=== PATIENT | female | born 1995 | race Caucasian/White ===

== ENCOUNTER → 2018-06-09 10:01 | Outpatient (CLI) | payer BC, SELFPAY ==
--- NOTE | 2018-06-09 10:05 | US_ITS ---
US transvaginal Ordering Physician: Donna Lal MD Patient Age: 23 years: Female HISTORY: ITS.REASON: T/V US- Amenorrhea2 months LMP 01/29/2018 TECHNIQUE: Transvaginal pelvic ultrasound MW COMPARISON :None FINDINGS : UTERUS: normal size . 6.3 cm length x 2.8 cm AP x 3.9 cm wide . No uterine mass. Homogeneous Endometrial stripe 6.3 mm AP. Moderate thickness . Nabothian cyst 4.5 mm length upper cervical canal Very numerous follicular cyst throughout both ovaries suggesting polycystic ovary changes: . This includes a ' string of lois 'appearance of the margin of both ovaries Right ovary: 3.4 cm x 1.8 cm x 2 cm Left ovary: 4.3 cm x 2 cm x 2.6 cm. . free fluid at cul-de-sac\: Fluid collection measuring up to 4.1 cm transverse x 1.3 cm AP X 3.2cm length IMPRESSION 1. Uterus appears normal in size. 2. Both ovaries with very numerous follicular cysts. Polycystic ovary appearance Left ovary slightly larger, measuring up to 4.3 cm maximally 3. Free fluid in cul-de-sac. IMPRESSION:
[2018-06-09 13:25] LABS: HCG,Quantitative 0 mIU/mL; Thyroid Stimulating Hormone 0.94 uIU/ml (0.358-3.740)
[2018-06-11 01:10] LABS: FSH 6.2 mIU/mL (.); LH 16.8 mIU/mL (.); Progesterone 0.2 ng/mL (.)
== END ==
PROVIDERS: Family Provider Internal Medicine Adolescent Medicine; PCP Internal Medicine Adolescent Medicine; Visit Provider Obstetrics & Gynecology
DX: N91.2 Amenorrhea, unspecified (principal); Z32.00 Encounter for pregnancy test, result unknown
CPT/HCPCS: 36415; 76830; 83001; 83002; 84144; 84443; 84702

== ENCOUNTER → 2021-10-26 17:26 | Outpatient (CLI) | payer BC, SELFPAY ==
--- NOTE | 2021-10-26 17:38 | XR_ITS ---
PROCEDURE INFORMATION: Exam: XR Right Ankle Exam date and time: 10/26/2021 5:38 PM Age: 26 years old Clinical indication: Pain; Ankle; Right; Additional info: Acute right ankle pain TECHNIQUE: Imaging protocol: XR Right ankle. Views: 3 or more views. COMPARISON: CR [id number] 03/14/2017 1:19 PM FINDINGS: Bones/joints: No fracture. No malalignment. Soft tissues: Mild soft tissue swelling about the ankle IMPRESSION: No acute osseous abnormality.
== END ==
PROVIDERS: PCP Nurse Practitioner Family; Visit Provider Nurse Practitioner Family
DX: M25.571 Pain in right ankle and joints of right foot (principal); G89.11 Acute pain due to trauma
CPT/HCPCS: 73610

== ENCOUNTER 2022-03-07 15:53 | Emergency (ER) | payer BC, SELFPAY ==
[2022-03-07 15:54] VITALS: BP 144/95; PULSE 92; RESP 16; TEMP 36.3; O2SAT 99; BMI 35.5
[2022-03-07 15:58] VITALS: BP 125/86; PULSE 82; O2SAT 100
[2022-03-07 16:11] LABS: Microscopic, Urine URINE MICROSCOPIC (MICROSCOPIC)
[2022-03-07 16:16] LABS: Appearance,Urine CLEAR (Clear); Bilirubin,Urine Negative (Negative); Blood, Urine Negative (Negative); Color,Urine YELLOW (Yellow); Glucose,Urine (UA) Negative (Negative); Ketones,Urine Negative (Negative); Leukocyte Esterase,Urine Negative (Negative); Nitrate,Urine Negative (Negative); PH,Urine 6.5 (5.0-8.5); Protein,Urine Negative (Negative); Urobilinogen,Urine 0.2 EU/dl (0.2)
--- NOTE | 2022-03-07 16:22 | HMH.EDGENADL ---
ED Disposition Clinical Impression: Bronchitis Strain of chest wall Qualifiers: Encounter type: initial encounter Qualified Code(s): S29.011A - Strain of muscle and tendon of front wall of thorax, initial encounter Disposition: Home, Self-Care Condition on Discharge: Fair Instructions: DI for Back Strain or Sprain Additional Instructions: Admit the use of your left upper extremity for the next 2 to 3 days. You may take [id number] Tylenol for your pain. Follow-up with your primary care doctor or your straightener hand in the next 3 to 4 days if you do not feel any improvement. Into the emergency department immediately if you feel worse in any way. Referrals: Ashish Schulz MD [Primary Care Provider] - - Critical Care Critical Care Time: No Attestation: On 03/07/22, the high probability of a clinically significant, sudden or life threatening deterioration of the following system(s) required my full and direct attention, intervention and personal management. The time I documented below is in addition to time spent performing reported procedures but includes the following listed in this critical care notation. Medical Decision Making - Medical Records Medical records reviewed: Yes: I reviewed the patient's medical records. - Jeffry Inquiry Pt receiving controlled substance: No Vital Signs: 03/07/22 15:54 Temperature 97.4 F L Temperature Source Oral Pulse Rate [Right Radial] 92 H Respiratory Rate 16 Blood Pressure [Right Arm] 144/95 H Blood Pressure Mean [Right Arm] 111 Blood Pressure Source [Right Arm] Automatic Cuff Blood Pressure Position [Right Arm] Sitting 02 Sat by Pulse Oximetry 99 Oxygen Delivery Method Room Air - Lab Data Lab results reviewed: Yes: I reviewed the patient's lab results. Lab Results 03/07/22 15:57: Urine Color Yellow, Urine Appearance Clear, Urine pH 6.5, Ur Specific [place] 1.020, Urine Protein Negative, Urine Glucose (UA) Negative, Urine Ketones Negative, Urine Blood Negative, Urine Nitrate Negative, Urine Bilirubin Negative, Urine Urobilinogen 0.2, Ur Leukocyte Esterase Negative Orders (Tests/Meds): ORDERS Category Date Time Status UA [Urinalysis and Microscopic] Stat Lab 03/07/22 15:57 Results Medical Decision Narrative: The patient's history and physical exam are consistent with a pulled muscle from coughing. The patient has no evidence of life-threatening or dangerous causes for the patient's pain. There is no urinary tract infection. There is no complication of . The patient can be discharged in stable condition with [id number] Tylenol for her pain. I have written her to limit the use of her left upper extremity since that causes more pain due to the movement. General Adult HPI - General Chief complaint: PAIN Stated complaint: lt side pain, 16 wk Time Seen by Provider: 03/07/22 16:22 Mode of Arrival: Ambulatory Limitations: No Limitations Description of Symptoms (Recalled from ER Triage Doc. by RN): Pt c/o worsening left side pain x1 week. Advises that she is currently 16 weeks - History of Present Illness HPI narrative: The patient presents to the emergency department complaining of left sided trunk pain that is worse with coughing and movement. She states that she has been coughing for the last week or so. She is also 16 months . She denies any vaginal bleeding. Denies any abdominal pain. No diarrhea or vomiting. - Related Data Allergies Allergy/AdvReac Type Severity Reaction Status Date / Time No Known Allergies Allergy Verified 08/07/18 17:58 [facility] History - Hepatitis A Screen Drug use history?: No High risk sexual behaviors?: No History of sexually transmitted infection?: No Currently employed?: No Childcare worker?: No Do you have indoor plumbing?: Yes Do you have electricity?: Yes Attestation statement:: This patient has been screened for Hepatitis A risk factors. Medi
[2022-03-07 16:28] LABS: Bacteria,Urine 1+ /lpf
[2022-03-07 16:30] VITALS: BP 119/71; PULSE 90; O2SAT 99
[2022-03-07 17:00] VITALS: BP 121/77; PULSE 74; O2SAT 100
[2022-03-07 17:23] VITALS: BP 121/77; PULSE 74; RESP 16; TEMP 36.9; O2SAT 98
== END 2022-03-07 17:24 | disposition home or self-care (01) ==
PROVIDERS: Emergency Provider Emergency Medicine; PCP Internal Medicine Adolescent Medicine
DX: O26.899 Other specified pregnancy related conditions, unspecified trimester (principal); S29.011A Strain of muscle and tendon of front wall of thorax, initial encounter; O99.52 Diseases of the respiratory system complicating childbirth; J40 Bronchitis, not specified as acute or chronic; Z3A.16 16 weeks gestation of pregnancy; G43.909 Migraine, unspecified, not intractable, without status migrainosus; O99.340 Other mental disorders complicating pregnancy, unspecified trimester; F32.A Depression, unspecified; F41.9 Anxiety disorder, unspecified; Z83.438 Family history of other disorder of lipoprotein metabolism and other lipidemia; Z80.9 Family history of malignant neoplasm, unspecified
CPT/HCPCS: 81001; 99283

== ENCOUNTER 2025-08-22 14:48 | Emergency (ER) | payer BC, SELFPAY ==
[2025-08-22 15:27] VITALS: BP 140/79; PULSE 106; RESP 16; TEMP 37; O2SAT 100; BMI 39.3
--- NOTE | 2025-08-22 15:28 | HMH.EDGENADL ---
Discharge Plan Disposition Patient Disposition: Home, Self-Care Prescriptions Prescriptions: New cephalexin 250 mg capsule 250 mg PO QID 5 Days Qty: 20 0RF Referrals Follow up/Referrals: Ashish Schulz MD [Primary Care Provider, Internal Medicine] - See instructions Activity Restrictions/Add. Instructions Additional Instructions/Restrictions: Your is approximately 6 weeks along with an appropriate heart rate and is located appropriately within the uterus. There is a small area of bleeding outside the uterus called a subchorionic hemorrhage, which is likely the source of your bleeding today. This does increase your risk of miscarriage but there is no evidence of miscarriage at this time. Continue to rest over the weekend and follow-up with your OB physician early next week as planned. You are also found to have bacteria in your urine and I am prescribing you a course of antibiotics. Take the Keflex 4 times daily for 5 days as prescribed. If you develop any new or worsening symptoms, such as fever, worsening bleeding, or if you become concerned for your health for any reason, return to the emergency department for evaluation. Clinical Impressions Clinical Impression: Subchorionic hemorrhage in first trimester, Confirmed intrauterine on ultrasound, Asymptomatic bacteriuria during Stand Alone Forms Stand Alone Forms: Work/School Release Instructions Patient Instructions: DI for Vaginal Bleeding During , Subchorionic Hemorrhage Print Language Print Language: Vincentian Discharge ED Provider: Nick Rivera Adult HPI General Chief complaint: Vaginal Bleeding Stated complaint: Positive Preg. Test/Bleeding Time Seen by Provider: 08/22/25 15:27 History of Present Illness HPI narrative: Loren Navarro is a 30F with no other significant past medical history who presents to the emergency department for complaints of vaginal bleeding with positive home test. Patient states that she has irregular periods and is not exactly sure how far along she is, however she estimates approximately 5 weeks. She states that she was seen by Dr. Schulz approximately 1 week ago and had blood work with a beta-hCG over 18,000. She states that today, approximately 1 hour ago, she had bloody/brown vaginal discharge when wiping only. She denies any dysuria or hematuria. She states that over the last several weeks she has had some abdominal cramping and nausea but no vomiting and no worsening pain today. She is concerned she might be having another miscarriage. She does state that she has had a miscarriage in the past. She denies any fevers. She reports that she is post have her first appointment with OB on Tuesday of next week. Related Data Previous Rx's ?Medication ?Instructions ?Recorded cephalexin 250 mg capsule 250 mg PO QID 5 days #20 caps 08/22/25 Allergies Allergy/AdvReac Type Severity Reaction Status Date / Time No Known Allergies Allergy Verified 08/22/25 15:33 [facility] Disclaimer: The information contained in this section may have been updated after the patient was seen, as this information can be updated by other users. Social History Smoking Status: Never smoker alcohol intake: never substance use type: denies use current occupational status: employed Travel in the last 8 weeks?: None Other Medical History Have you received the Flu Vaccine for this season: Yes Have you received the Pneumonia Vaccine: No ROS Obtained: Yes Systems reviewed as appropriate & no additional complaints except as documented Physical Exam General General appearance: alert and in no apparent distress Head Head exam: atraumatic Eye Eye exam: Present normal appearance ENT ENT exam: Present normal external ear exam Neck Neck exam: Present full ROM Chest Chest inspection: Present symmetric chest wall rise Respiratory Respiratory exam: Present normal lung sounds bilaterally; Absent respiratory distress Cardiovascular Cardiovascular exam: Present regular rate and normal rhythm Abdominal Exam Abdominal exam: Present soft; Absent tenderness or guarding Extremities Exam Extremities exam: Present normal inspection Back Exam Back exam: Present normal inspection Neurological Exam Neurological exam: Present alert and oriented X3 Psychiatric Psychiatric exam: Present normal affect Skin Skin exam: Present warm and dry Medical Decision Making Medical Records Screening: Per USPSTF and CDC recommendations, given the prevalence of disease in our region, it is our hospital?s policy to screen for HIV and viral Hepatitis for all patients aged 18 and over and those with ongoing risk factors. Jeffry Inquiry Pt receiving controlled substance: No Vital Signs: 08/22/25 15:27 Temperature 98.6 F Temperature Source Oral Pulse Rate [Left Brachial] 106 H Respiratory Rate 16 Blood Pressure [Left Arm] 140/79 Blood Pressure Mean [Left Arm] 99 Blood Pressure Source [Left Arm] Automatic Cuff Blood Pressure Position [Left Arm] Sitting 02 Sat by Pulse Oximetry 100 Oxygen Delivery Method Room Air Lab Data Lab Results 08/22/25 15:25: Urine Color Yellow, Urine Appearance Clear, Urine pH 6.5, Ur Specific [place] 1.010, Urine Protein Negative, Urine Glucose (UA) Negative, Urine Ketones Negative, Urine Blood 1+ A, Urine Nitrate Negative, Urine Bilirubin Negative, Urine Urobilinogen 0.2, Ur Leukocyte Esterase Negative, Urine RBC Occasional, Urine WBC 5-10, Ur Squamous Epith Cells 5-10, Urine Bacteria Trace 08/22/25 15:49: WBC 7.3, RBC 4.52, Hgb 13.2, Hct 39.6, MCV 87.6, MCH 29.2, MCHC 33.3, RDW 12.7, Plt Count 307, MPV 9.6, Neut % (Auto) 67.4, Lymph % (Auto) 24.2, Wirt % (Auto) 6.1, Eos % (Auto) 1.8, Baso % (Auto) 0.4, Neut # (Auto) 4.9, Lymph # (Auto) 1.8, Wirt # (Auto) 0.5, Eos # (Auto) 0.1, Baso # (Auto) 0.0, Sodium 136, Potassium 3.8, Chloride 102, Carbon Dioxide 26, Anion Gap 11.8, BUN 8, Creatinine 0.80, Estimated Creat Clear 163, Estimated GFR 84, Est GFR ( Amer) 102, Glucose 86, Calcium 9.5, Total Bilirubin 0.4, AST 24, ALT 27, Alkaline Phosphatase 80, Total Protein 7.4, Albumin 4.1, Globulin 3.3 H, Albumin/Globulin Ratio 1.2, HCG, Quant 29629 H, Blood Type B Positive 08/22/25 15:49 08/22/25 15:49 Orders (Tests/Meds): ORDERS Category Date Time Status ABO/RH Type Stat BBK 08/22/25 15:49 Completed Beta HCG, Quant [HCG,Quantitative] Stat Lab 08/22/25 15:49 Completed CBC w/Auto Diff [Complete Blood Count Auto Diff] Stat Lab 08/22/25 15:49 Completed CMP [Comprehensive Metabolic Panel] Stat Lab 08/22/25 15:49 Completed UA [Urinalysis and Microscopic] Stat Lab 08/22/25 15:25 Completed US OB transvaginal Stat Ultrasound 08/22/25 15:34 Completed Medical Decision Narrative: Loren Navarro is a 30F with no other significant past medical history who presents to the emergency department for complaints of vaginal bleeding with positive home test. Patient states that she has irregular periods and is not exactly sure how far along she is, however she estimates approximately 5 weeks. She states that she was seen by Dr. Schulz approximately 1 week ago and had blood work with a beta-hCG over 18,000. She states that today, approximately 1 hour ago, she had bloody/brown vaginal discharge when wiping only. She denies any dysuria or hematuria. She states that over the last several weeks she has had some abdominal cramping and nausea but no vomiting and no worsening pain today. She is concerned she might be having another miscarriage. She does state that she has had a miscarriage in the past. She denies any fevers. She reports that she is post have her first appointment with OB on Tuesday of next week. On arrival, patient's blood pressure mildly elevated at 140/79, heart rate mildly elevated at 106, in no respiratory distress breathing 16 times a minute. Afebrile with temperature 98.6 ?F. Oxygen saturation 100% on room air. Physical exam, as stated above, revealed overall well-appearing female in no distress. She has no abdominal tenderness on exam. Cardiopulmonary exam is unremarkable. Differential diagnosis includes, but is not limited to: Threatened miscarriage, ectopic , inevitable miscarriage, subchorionic hemorrhage, asymptomatic bacteriuria in , among others. Low concern for septic miscarriage given patient has not had a fever and is afebrile here. Will obtain hematologic labs, quantitative beta-hCG, urinalysis and transvaginal ultrasound to confirm intrauterine . Patient's workup shows no leukocytosis, no anemia, platelets within normal limits. Electrolytes within normal limits. No GIOVANNI. Liver enzymes within normal limits. Bilirubin normal at 0.4. Patient's urinalysis shows 1+ blood. Negative nitrate. Patient's blood type is B+, thus there is no indication for RhoGAM. Negative leukocyte esterase. Urine microscopy showed 5-10 white blood cells, occasional red blood cells and trace bacteria. This is consistent with asymptomatic bacteriuria of . Will prescribe 5-day course of Keflex. Patient's quantitative beta-hCG is appropriately rising and is over 61,000 today. Transvaginal ultrasound was interpreted by me personally. Live intrauterine approximately 6 weeks 0 days with heart motion of 146 bpm. Per radiology, there is a possible small subchorionic hemorrhage along the lower margin of the gestational sac. No other acute findings. Patient's bleeding today could be secondary to threatened versus subchorionic bleeding. Patient notes that she has follow-up early next week with her OB physician. I discussed the results of her workup today and instructed her to follow-up as scheduled and to continue taking vitamins. I did state that a subchorionic hemorrhage could pose an increased risk to miscarriage in the first trimester. I discussed that we have prescribed her antibiotics for bacteria in her urine. I did give the patient strict return precautions. All questions were answered. She demonstrated understanding and was in agreement this plan. She was then discharged from the emergency department in stable condition. Critical Care Critical Care Time Critical Care Time: No
--- NOTE | 2025-08-22 15:34 | US_ITS ---
PROCEDURE INFORMATION: Exam: US , Transvaginal Exam date and time: 08/22/2025 3:41 PM Age: 30 years old Clinical indication: Lmp or gestational age (in weeks): 6w1d; Other: Bleeding; ; Additional info: Positive preg test, vaginal bleeding TECHNIQUE: Imaging protocol: Real-time transvaginal obstetrical ultrasound of the maternal pelvis with image documentation. Transvaginal imaging was used for better evaluation of the fetus, adnexa, and/or cervix. COMPARISON: No relevant prior studies available. FINDINGS: Gestation: Gestational sac, yolk sac and pole are identified within the endometrial cavity. Yolk sac measures 3.8 mm. [place]-rump length measures up to 3.74 cm (6 weeks 0 days). heart rate: 146 bpm. BIOMETRY: Gestational age (AUA): 6 w 1 d Estimated due date (AUA): 04/16/2026 [place] rump length (CRL): 3.74 mm. EGA (CRL) is 6 w 0 d MATERNAL: Cervix: Cervix appears closed. Right ovary/adnexa: Right ovary measures 2.76 cm x 2.05 cm x 1.67 cm. Right ovarian volume is 4.95 mL. The right ovary appears unremarkable. Numerous small cysts or follicles are present. Vascular flow is documented within the right ovary. Arterial and venous waveforms are within normal limits. Left ovary/adnexa: Left ovary measures 2.73 cm x 1.93 cm x 2.01 cm. Left ovarian volume is 5.55 mL. Left ovary appears unremarkable. Faint vascular flow is documented within the left ovary. Intraperitoneal space: No free fluid. Other findings: Subtle heterogeneous and curvilinear area of decreased echogenicity is present along the inferior margin of the gestational sac which could potentially correspond to a very small subchorionic hemorrhage. IMPRESSION: 1. Live intrauterine approximately 6 weeks 0 days gestational age based on measurement. heart motion detected at up to 146 bpm. 2. Subtle curvilinear area of decreased echogenicity along the lower margin of the gestational sac could correspond to a very small subchorionic hemorrhage. Clinical follow-up is recommended. 3. Ovaries appear unremarkable.
--- OUTSIDE RECORDS SUMMARY | 2025-08-22 15:42 | XMS_ITS | Encounter Summary ---
Author Organization [employer] ([place], [place], [place], [place]) Address [address] [place] [address] Care Team Providers Care Gauge Checker Name Role Phone Unavailable Primary Care Provider Unavailabl e Encounter Details Date Type Department Care Team (Late st Contact Info) Description 10/15/2019 Transcribed Document [facility] [place] Family Medicine [address] [place] [address] ProviderFlavia MD [address] [place] [address] Social History Tobacco Use Types Packs/Day Years Used Date Smoking Tobacco: Never Assessed Comments Unknown Sex and Gender Information Value Date Recorded Sex Assigned at Female 05/25/2022 8:35 PM CDT Legal Sex Female 8:35 PM CDT Gender Identity Female 05/25/2022 8:35 PM CDT Sexual Orientation Not on file documented as of this encounter Miscellaneous Notes * Cerner Conversion Note - Flavia ProviderMD - 10/15/2019 3:01 PM HOME PERFORMANCE LABORER [address] [address] LOREN NAVARRO :1995 Visit Time:10/15/2019 What to do next Your Diagnosis Other ovarian cyst, right side, Other ovarian cyst, right side Ovarian cyst, right Instructions From Your Care Team Diet after Discharge: Resume usual diet as tolerated Activity after Discharge: As tolerated, Rest and relax today, No strenuous activity Driving after Discharge: Do not drive until 24 hours after no longer taking pain medications Showering/Bathing: May shower in 48 hours, No tub bathing, soaking or swimming Notify Provider of: fever 101 or higher or chills; uncontrollable nausea and vomiting or uncontrollable pain, increased redness, drainage, or swelling at incision sites, bleeding heavier than a menstrual period, or any symptom that concerns you Wound/Incision Care after Discharge: Keep operative site/wound site clean and dry, Remove outer dressings in 48 hours and shower, leave steri strips in place and blot dry Prescription given for Percocet 5/325mg take one tablet by mouth three times a day as needed for pain (you had Percocet 5/325mg at 2:19pm). Do not take Ibuprofen or Ibuprofen containing medications before 10:24pm. Follow-Up Appointments Follow Up with BRITTON TAYLOR When 11/06/2019 02:00 PM EST Comments Appointment has been made Where: [address] [place] [address] [id number] Medications What How Much When Instructions Next Dose acetaminophen-oxyCODONE (Percocet 5/ 325 oral tablet) 1 Tablet(s) Oral Three Times A Day as needed for Pain (Moderate 4-6) Printed Prescription drospirenone-ethinyl estradiol (Tiffanie 3 mg-0.02 mg oral tablet) 1 Tablet(s) Oral Every Day Take your medications faithfully. Do NOT skip medication. Do NOT stop taking medications without the direction of a physician. Carry a list of your medications with you at all times, and take this medication list with you to your first follow up visit. Report any side effects. Avoid herbal remedies unless discussed with your physician. As part of your treatment plan, your physician may have prescribed a limited course of a controlled substance. This medication may be given to help people with moderate or severe pain or for other medical conditions, but there are risks involved with treatment. Common side effects may include nausea, constipation, drowsiness, sweating, itching, dry mouth, and rash. More serious side effects may include cognitive and motor impairment, like problems with thinking, concentrating, alertness, and movement (e.g. slowed reflexes), and driving and operating heavy machinery can be dangerous. It is important for you to talk to your physician if you have these side effects or questions. These controlled substances can produce physical dependence and be habit-forming if taken for an extended period of time, which means that the body has gotten used to them and may experience withdrawal symptoms if they are abruptly stopped. Withdrawal symptoms can include runny nose, sweating, goose bumps, diarrhea, abdominal cramping, rapid heartbeat, difficulty sleeping, and nervousness. Please dispose of unused and medications per pharmacy guidance. Education Materials General Anesthesia, Adult, Care After This sheet gives you information about how to care for yourself after your procedure. Your health care provider may also give you more specific instructions. If you have problems or questions, contact your health care provider. What can I expect after the procedure? After the procedure, the following side effects are common: ??? Pain or discomfort at the IV site. ??? Nausea. ??? Vomiting. ??? Sore throat. ??? Trouble concentrating. ??? Feeling cold or chills. ??? Weak or tired. ??? Sleepiness and fatigue. ??? Soreness and body aches. These side effects can affect parts of the body that were not involved in surgery. Follow these instructions at home: For at least 24 hours after the procedure: ??? Have a responsible adult stay with you. It is important to have someone help care for you until you are awake and alert. ??? Rest as needed. ??? Do not: ? Participate in activities in which you could fall or become injured. ? Drive. ? Use heavy machinery. ? Drink alcohol. ? Take sleeping pills or medicines that cause drowsiness. ? Make important decisions or sign legal documents. ? Take care of children on your own. Eating and drinking ??? Follow any instructions from your health care provider about eating or drinking restrictions. ??? When you feel hungry, start by eating small amounts of foods that are soft and easy to digest (bland), such as toast. Gradually return to your regular diet. ??? Drink enough fluid to keep your urine pale yellow. ??? If you vomit, rehydrate by drinking water, juice, or clear broth. General instructions ??? If you have sleep apnea, surgery and certain medicines can increase your risk for breathing problems. Follow instructions from your health care provider about wearing your sleep device: ? Anytime you are sleeping, including during daytime naps. ? While taking prescription pain medicines, sleeping medicines, or medicines that make you drowsy. ??? Return to your normal activities as told by your health care provider. Ask your health care provider what activities are safe for you. ??? Take jgpx-ndh-gtzhdzj and prescription medicines only as told by your health care provider. ??? If you smoke, do not smoke without supervision. ??? Keep all follow-up visits as told by your health care provider. This is important. Contact a health care provider if: ??? You have nausea or vomiting that does not get better with medicine. ??? You cannot eat or drink without vomiting. ??? You have pain that does not get better with medicine. ??? You are unable to pass urine. ??? You develop a skin rash. ??? You have a fever. ??? You have redness around your IV site that gets worse. Get help right away if: ??? You have difficulty breathing. ??? You have chest pain. ??? You have blood in your urine or stool, or you vomit blood. Summary ??? After the procedure, it is common to have a sore throat or nausea. It is also common to feel tired. ??? Have a responsible adult stay with you for the first 24 hours after general anesthesia. It is important to have someone help care for you until you are awake and alert. ??? When you feel hungry, start by eating small amounts of foods that are soft and easy to digest (bland), such as toast. Gradually return to your regular diet. ??? Drink enough fluid to keep your urine pale yellow. ??? Return to your normal activities as told by your health care provider. Ask your health care provider what activities are safe for you. This information is not intended to replace advice given to you by your health care provider. Make sure you discuss any questions you have with your health care provider. Document Released: 02/20/2002 Document Revised: 06/30/2018 Document Reviewed: 06/30/2018 [employer] Interactive Patient Education ?? 2019 [employer] Ovarian Cystectomy, Care After This sheet gives you information about how to care for yourself after your procedure. Your health care provider may also give you more specific instructions. If you have problems or questions, contact your health care provider. What can I expect after the procedure? After the procedure, it is common to have: ??? Pain in your abdomen, especially at the incision areas. You will be given pain medicines to control the pain. ??? Tiredness. This is a normal part of the recovery process. Your energy level will return to normal over the next several weeks. ??? Problems passing stool (constipation). Follow these instructions at home: Medicines ??? Take drbg-lkb-wzwlotc and prescription medicines only as told by your health care provider. ??? If you were prescribed an antibiotic medicine, use it as told by your health care provider. Do not stop using the antibiotic even if you start to feel better. ??? Do not take aspirin because it can cause bleeding. ??? Do not drink alcohol while taking prescription pain medicine. ??? Do not drive or use heavy machinery while taking prescription pain medicine. Incision care ??? Follow instructions from your health care provider about how to take care of your incisions. Make sure you: ? Wash your hands with soap and water before you change your bandage (dressing). If soap and water are not available, use hand diesel electrician. ? Change your dressing as told by your health care provider. ? Leave stitches (sutures), skin glue, or adhesive strips in place. These skin closures may need to stay in place for 2 weeks or longer. If adhesive strip edges start to loosen and curl up, you may trim the loose edges. Do not remove adhesive strips completely unless your health care provider tells you to do that. ??? Check your incision areas every day for signs of infection. Check for: ? Redness, swelling, or pain. ? Fluid or blood. ? Warmth. ? Pus or a bad smell. ??? Do not take baths, swim, or use a hot tub until your health care provider approves. Take showers instead of baths. Activity ??? Return to your normal activities and diet as told by your health care provider. Ask your health care provider what activities are safe for you. ??? Take rest breaks during the day as needed. ??? Do not drive until your health care provider approves. General instructions ??? Do not douche, use tampons, or have sexual intercourse until your health care provider says it is okay to do so. ??? To prevent or treat constipation while you are taking prescription pain medicine, your health care provider may recommend that you: ? Take fxtw-wmh-rlxfnki or prescription medicines. ? Eat foods that are high in fiber, such as fresh fruits and vegetables, whole grains, and beans. ? Drink enough fluid to keep your urine clear or pale yellow. ? Limit foods that are high in fat and processed sugars, such as fried and sweet foods. ??? Keep all follow-up visits as told by your health care provider. This is important. Contact a health care provider if: ??? You have a fever. ??? You feel nauseous or you vomit. ??? You have pain when you urinate or have blood in your urine. ??? You have a rash on your body. ??? You have pain or redness where the IV was inserted. ??? You have pain that is not relieved with medicine. ??? You have signs of infection, such as: ? Redness, swelling, or pain around your incisions. ? Fluid or blood coming from your incisions. ? An incision that feels warm to the touch. ? Pus or a bad smell coming from your incisions. Get help right away if: ??? You have chest pain or shortness of breath. ??? You feel dizzy or light-headed. ??? You have increasing abdominal pain that is not relieved with medicines. ??? You have pain, swelling, or redness in your leg. ??? Your incision is opening (the edges are not staying together). Summary ??? After the procedure, it is common to have some pain in your abdomen. You will be given pain medicines to control the pain. ??? Follow instructions from your health care provider about how to take care of your incisions. ??? Do not douche, use tampons, or have sexual intercourse until your health care provider says it is okay to do so. ??? Keep all follow-up visits as told by your health care provider. This is important. This information is not intended to replace advice given to you by your health care provider. Make sure you discuss any questions you have with your health care provider. Document Released: 09/04/2014 Document Revised: 01/03/2018 Document Reviewed: 01/03/2018 [employer] Interactive Patient Education ?? 2019 [employer] Emergency Awareness and Preventative Care STROKE is an EMERGENCY Every Minute Counts Act FAST and Check for these signs: FACE Does the face look uneven? ARM Does one arm drift down? SPEECH Does their speech sound strange? TIME Call 9-1-1 at any sign of stroke Stroke Risk Factors Atrial Fibrillation (irregular heartbeat) Diabetes Family history of stroke Heart Disease Heavy alcohol use High Blood Pressure High Cholesterol Physical inactivity and obesity Smoking Cigarette Smoking The facts are clear, cigarette smoking will shorten your life. Smoking can cause many illnesses along the way. As a healthcare provider, we recommend that you stop smoking. Assistance with quitting is available by contacting 7-601-FPKWNOW. This is a free resource providing counseling, support, and referral. Or you may contact your personal physician. [place] Suicide Prevention Lifeline: The National Suicide Prevention Lifeline is a national network of local crisis centers that provides free and confidential emotional support to people in suicidal crisis or emotional distress 24 hours a day, 7 days a week. Don't Wait! Stop a Heart Attack Before it Starts What is a heart attack? A heart attack is damage or to a part of the heart from severely decreased or lack of blood flow to the heart. Over time, arteries can become narrow from the buildup of fat and cholesterol, which is called plaque. The plaque can rupture causing a blood clot to form. When the blood clot forms, the artery can become severely narrowed or completely blocked, causing a heart attack. Heart attack is the leading cause of in the [place]. 85% of muscle damage occurs within the first 2 hours. Delay in the recognition of heart attack symptoms increases the chances of . Know the early symptoms of a heart attack: Nausea Feeling of fullness in chest Jaw Pain Pain that travels down one or both arms Fatigue/being tired Anxiety Back Pain Chest pressure, squeezing, or discomfort Shortness of breath Sweating, or a cold sweat Feeling of impending doom There are unusual signs of a heart attack, too! Women, the elderly, and diabetics may present with atypical symptoms: Fainting/dizziness Weakness Confusion Risk Factors for a Heart Attack Some heart disease risk factors, such as age and family history, cannot be changed. Others, like smoking and lack of exercise, can be changed. Smoking High Cholesterol High Blood Pressure Family History Obesity Age Gender (Males are at higher risk) Lack of Exercise Diabetes Diet Stress Excessive Alcohol Intake If you or someone you know is experiencing the signs and symptoms of a heart attack, DON???T DELAY. Call immediately and seek help. If someone collapses, perform CPR! Do not attempt to drive if you are having symptoms of heart attack. Hands-Only CPR Why Hands-Only CPR? Hands-Only CPR has been shown to be as effective as conventional CPR for cardiac arrests that occur outside of a hospital. Survival depends on immediately receiving CPR from someone nearby. How do you perform Hands-Only CPR? There are two easy steps: Call 9--1 if you see a teen or adult collapse Push hard and fast in the center of the chest at a beat of 100 beats per minute. Save a life! 4 WAYS TO GET AHEAD OF SEPSIS SEPSIS is a MEDICAL EMERGENCY. Time matters! Infections put you and your family at risk for a life-threatening condition called sepsis. Sepsis is the body's extreme response to an infection. It is life-threatening, and without timely treatment, sepsis can rapidly lead to tissue damage, organ failure, and . Sepsis happens when an infection you already have-in your skin, lungs, urinary tract or somewhere else-triggers a chain reaction throughout your body. 1 PREVENT INFECTIONS Take good care of chronic conditions. Talk to your doctor about getting the recommended vaccines. 2 PRACTICE GOOD HYGIENE Wash your hands frequently. Keep cuts or open sores clean and covered until they are healed. 3 KNOW THE SYMPTOMS Confusion or disorientation Shortness of breath High heart rate Fever, shivering, or feeling very cold Extreme pain or discomfort Clammy or sweaty skin 4 ACT FAST Get medical care IMMEDIATELY if you suspect sepsis or if you have an infection that is not getting better or is getting worse. To learn more about sepsis and how to prevent infections, visit www.cdc.gov/sepsis. Test Results Laboratory or Other Results This Visit (last charted value for your 10/15/2019 visit) Endocrinology 10/15/2019 11:29 AM HCG Urine Qualitative: Negative Patient Name:LOREN NAVARRO I have received this information and was given the opportunity to ask questions. Patient/African History Professor Name: Patient/African History Professor Signature: Relationship to Patient: Clinician/Hospital African History Professor Signature: Date: documented in this encounter Plan of Treatment Not on file documented as of this encounter Visit Diagnoses Not on filedocumented in this encounter
--- OUTSIDE RECORDS SUMMARY | 2025-08-22 15:42 | XMS_ITS | Encounter Summary ---
Author Organization [employer] ([place], [place], [place], [place]) Address [address] [place] [address] Care Team Providers Care Baby Formula Worker Name Role Phone Unavailable Primary Care Provider Unavailabl e Encounter Details Date Type Department Care Team (Late st Contact Info) Description 10/15/2019 Transcribed Document [facility] [place] [address] [place] [address] ProviderFlavia MD [address] [place] [address] Social History Tobacco Use Types Packs/Day Years Used Date Smoking Tobacco: Never Assessed Comments Unknown Sex and Gender Information Value Date Recorded Sex Assigned at Female 05/25/2022 8:35 PM CDT Legal Sex Female 8:35 PM CDT Gender Identity Female 05/25/2022 8:35 PM CDT Sexual Orientation Not on file documented as of this encounter Miscellaneous Notes * Cerner Conversion Note - Flavia Romo MD - 10/15/2019 2:31 PM ROLLER SKATER Patient Education Materials Follows: General Anesthesia, Adult, Care After This sheet [...] activities are safe for you. ??? Take qryo-jlo-eqiyhfz and prescription medicines only as told by [...] 02/20/2002 Document Revised: 06/30/2018 Document Reviewed: 06/30/2018 [employer] Interactive Patient Education ? 2019 [employer] Ovarian Cystectomy, Care After This sheet [...] these instructions at home: Medicines ??? Take onty-pat-eailflh and prescription medicines only as told by [...] and water are not available, use hand spiral tube winder. ? Change your dressing as told by [...] provider may recommend that you: ? Take wpby-sss-rlzjkfb or prescription medicines. ? Eat foods that [...] 09/04/2014 Document Revised: 01/03/2018 Document Reviewed: 01/03/2018 [employer] Interactive Patient Education ? 2019 [employer] documented in this encounter Plan of Treatment Not on file documented as of this encounter Visit Diagnoses Not on filedocumented in this encounter
--- OUTSIDE RECORDS SUMMARY | 2025-08-22 15:42 | XMS_ITS | Encounter Summary ---
Author Organization [employer] ([place], [place], [place], [place]) Address [address] [place] [address] Care Team Providers Care Senior Major Gifts Officer Name Role Phone Unavailable Primary Care Provider Unavailabl e Encounter Details Date Type Department Care Team (Late st Contact Info) Description 10/15/2019 Transcribed Document [facility] [place] Family Medicine [address] [place] [address] ProviderFlavia MD [address] [place] [address] Social History Tobacco Use Types [...] Conversion Note - Flavia ProviderMD - 10/15/2019 1:09 PM REED REPAIRER [facility] Main OR PreOp Summary Primary Physician: BRITTON TAYLOR MD-OBG Finalized Date/Time: 10/16/19 08:53:33 Pt. Name: LOREN LUIS/Sex: 1995 Female Med Rec #: [id number] Physician: BRITTON TAYLOR MD-OBG Financial #: [id number] Pt. Type: O Room/Bed: Admit/Disch: 10/15/19 10:40:00 - 10/15/19 15:25:00 [place] [facility] [place] Case Times Entry 1 In Preop 10/15/19 10:45:00 Ready for Holding n/a Room Patient Ready for 10/15/19 12:05:00 Surgery Patient Out of Preop 10/15/19 12:40:00 Patient Out of n/a Holding Room Last Modified By: WILLIAM BALDWIN 10/16/19 08:53:31 SJYonis PreOp Case Times Audit 10/16/19 08:53:31 Trucker Hand: DONNIE Modifier: [email or web address] <+> 1 Patient Out of Preop Finalized By: WILLIAM BALDWIN Document Signatures Signed By: WILLIAM BALDWIN 10/16/19 08:53 documented in this encounter Plan of Treatment Not on file documented as of this encounter Visit Diagnoses Not on filedocumented in this encounter
--- OUTSIDE RECORDS SUMMARY | 2025-08-22 15:42 | XMS_ITS | Encounter Summary ---
Author Organization [employer] ([place], [place], [place], [place]) Address [address] [place] [address] Care Team Providers Care Raymond Mill Operator Name Role Phone Unavailable Primary Care Provider Unavailabl e Encounter Details Date Type Department Care Team (Late st Contact Info) Description 10/15/2019 Transcribed Document [facility] [place] [facility] [place] [address] ProviderFlavia MD [address] [place] [address] Social History Tobacco Use Types Packs/Day Years Used Date Smoking Tobacco: Never Assessed Comments Unknown Sex and Gender Information Value Date Recorded Sex Assigned at Female 05/25/2022 8:35 PM CDT Legal Sex Female 8:35 PM CDT Gender Identity Female 05/25/2022 8:35 PM CDT Sexual Orientation Not on file documented as of this encounter Miscellaneous Notes * Cerner Conversion Note - Historical ProviderMD - 10/15/2019 11:48 AM PACKING LINE OPERATOR Pre Procedure Adult Entered On: 10/15/2019 11:54 EST Performed On: 10/15/2019 11:48 EST by QUINTIN GALINDO RN Height and Weight, Clinical Dosing Height Source : Stated Height Entry Format : [place] Height, Feet : 5 ft(Converted to: 152 cm, 60 Inch) Height, Inches : 4 Inch(Converted to: 0 ft 4 Inch, 10.16 cm) Clinical Height : 162.56 cm Weight Source : Standing scale Weight Entry Format : [place] Clinical Dosing Weight : 89.55 kg Weight, Pounds : 197 lb Body Surface Area (BSA) : 1.95 m2 Body Mass Index : 33.9 kg/m2 (HI) [place] Body Weight : 54 kg QUINTIN GALINDO RN - 10/15/2019 11:48 EST Health Histories Smoking Status : Never (less than 100 in lifetime; none in last 30 days) Smokeless Tobacco Status : Never QUINTIN GALINDO RN - 10/15/2019 11:48 EST Social History (As Of: 10/15/2019 11:54:38 EST) Tobacco: Never (less than 100 in lifetime) Smoking Status. Never Smokeless Tobacco Status. (Last Updated: 10/15/2019 11:47:11 EST by QUINTIN GALINDO RN) Alcohol: Alcohol Use History No. Alcohol Use Frequency Rarely. (Last Updated: 10/15/2019 11:47:26 EST by QUINTIN GALINDO RN) Substance Abuse: Drug Use Hx: No. Use in Last 12 Months: No. (Last Updated: 10/15/2019 11:47:34 EST by QUINTIN GALINDO RN) Infectious Disease History Infectious Disease History : Chicken pox/Shingles Active Surveillance Screen Assessment : Patient does not meet any of above criteria Active Surveillance Screen Negative : Yes Isolation Needed : Standard Fever/Chills Last 48 Hours : No Travel To Regions with Travel Advisories : No Travel Outside [place] Within Last 30 Days : No Contact With Traveler to Advisory Region : No Tuberculosis Symptoms : None QUINTIN GALINDO RN - 10/15/2019 11:48 EST Anesthesia/Transfusion History Family History of Anesthesia Reaction : No prior transfusion(s) Transfusion History : Prior anesthesia without reaction Family History of Anesthesia Reaction : None QUINTIN GALINDO RN - 10/15/2019 11:48 EST Functional Assessment Living Situation : Home Patient Lives With : Alone Persons Assisting Patient at Home : Friend(s), Parent(s) Current Daily Living Assistance : None Sensory Deficits : None Mobility Assistance Prior to Admission : Independent BU[place] Hx Falls Immediate/Within 3 Months : No Current Home Treatments : None QUINTIN GALINDO RN - 10/15/2019 11:48 EST [place] Suicide Severity Rating Scale (C-SSRS) CSSRS Past Month Wish to be : No CSSRS Past Month Suicidal Thoughts : No CSSRS Lifetime Suicide Behavior : No Suicide Severity Rating Score : 0 Suicide Severity Rating : No Additional Care Required at this time QUINTIN GALINDO RN - 10/15/2019 11:48 EST Psychosocial History Do You Have a History of the Following? : Depression Currently in Unsafe Situation : No QUINTIN GALINDO RN - 10/15/2019 11:48 EST Advance Directive Patient has Advance Directive *Q : No, patient refuses Advance Directive information QUINTIN GALINDO RN - 10/15/2019 11:48 EST General Info Legal Guardian : Friend, Mother Want Family/Rep/Phys Notified of Admit : No Emergency Contact #1 : Chantel Chirinos Emergency Contact #1 Emergency Contact #1 Relationship : mother Emergency Contact #2 : . Emergency Contact #2 Phone Number : . Emergency Contact #2 Relationship : . Information Obtained From : Patient Primary Language : Kyrgyz Preferred Communication Mode : Verbal Communication Barrier : None QUINTIN GALINDO RN - 10/15/2019 11:48 EST Vital Measurements Temperature Source : Oral Temperature, Fahrenheit : 98.3 Deg F Clinical Temperature, C : 36.8 Deg C Pulse Method : Pulse Oximetry Peripheral Pulse Rate : 89 bpm Pulse Rhythm : Regular Respiratory Rate : 16 Breaths/Min Blood Pressure Source : Non-Invasive BP Device Blood Pressure Position : Sitting Systolic Blood Pressure : 144 mmHg (HI) Diastolic Blood Pressure : 85 mmHg Oxygen Saturation : 100 % Oxygen Therapy Mode : Room air QUINTIN GALINDO RN - 10/15/2019 11:48 EST Sleep Apnea Risk Assmt Hx of Obstructive Sleep Apnea Diagnosis : No Snore Loudly : No Tired, Fatigued, or Sleepy During Day : No Observed Stopping Breathing During Sleep : No Have/Are Being Treated for Hypertension : No BMI Greater Than 35 kg/m2 : Yes Age over 50 Years Old : No Neck Circumference Greater Than 40 cm : No Gender Male : No STOP-BANG Sleep Apnea Risk Level Score : 1 QUINTIN GALINDO RN - 10/15/2019 11:48 EST Melvin Scale Melvin Sensory Perception : No impairment Melvin Moisture : Rarely moist Melvin Activity : Walks frequently Melvin Mobility : No limitation Melvin Nutrition : Adequate Melvin Friction and Shear : No apparent problem Melvin Score : 22 QUINTIN GALINDO RN - 10/15/2019 11:48 EST Fall Risk Scales ABCs Fall Injury Risk Identification : None BUENO Hx Falls Immediate/Within 3 Months : No [place] Secondary Diagnosis : No BUENO Use of Ambulatory Aid : None BUENO IV Therapy or IV Access : Yes [place] Gait/Transferring : Normal, bedrest, immobile Bueno Mental Status : Oriented to own ability [place] Fall Risk Score : 20 [place] Fall Scale Risk Level : 0-24 Low Risk [place] Fall Interventions : Adequate lighting, Bed in low position, Call device within reach, Non-slip footwear, Personal items within reach, Reinforced to call for assistance before getting out of bed, Room free of clutter/spills, Upper side-rails up, Wheels locked, Wires/Cords secured QUINTIN GALINDO RN - 10/15/2019 11:48 EST Education Topics, Day of Surgery DayofSurgery Education Grid Anesthesia/Sedation : Verbalizes understanding Fall Risks : Verbalizes understanding Family Instructions : Verbalizes understanding IV's : Verbalizes understanding Medication Instructions : Verbalizes understanding Pain Management : Verbalizes understanding Plan of Care : Verbalizes understanding Responsible Adult : Verbalizes understanding QUINTIN GALINDO RN - 10/15/2019 11:48 EST Valuables and Belongings Valuables and Belongings : Clothing, Personal devices, Personal items Clothing : Common streetwear Clothing Disposition : With family Personal Device Disposition : With family Personal Devices : Glasses Personal Items : Cell phone Personal Items Disposition : With family QUINTIN GALINDO RN - 10/15/2019 11:48 EST documented in this encounter Plan of Treatment Not on file documented as of this encounter Visit Diagnoses Not on filedocumented in this encounter
--- OUTSIDE RECORDS SUMMARY | 2025-08-22 15:42 | XMS_ITS | Patient Health Record ---
Author Organization [facility] Address [address] [facility] [address] [place] [address] Care Team Providers Care Corporate Communications Manager Name Role Phone Janell Turcios Unavailable [phone] Reason For Referral No Information Problems Problem Type SNOMED Code ICD Code Onset Dates Problem Status W/U Status Risk Notes Problem Gynecological examination normal (84930177074220 4) Cervical smear, as part of routine gynecological examination (Z01.419) 016 Active confirmed Annual without abnormal findings Problem Contraception care education (209340597) Advised about oral contraception (Z30.09) 015 Active confirmed Contraceptive management Plan Of Treatment No Information Medical (General) History Medical History History ICD Code A Routine MINASTRIN 24 FE 1-20 MG-MCG(24) ORAL TAB LET CHEWABLE, ORAL
--- OUTSIDE RECORDS SUMMARY | 2025-08-22 15:42 | XMS_ITS | Referral Summary ---
Author Organization [employer] ([place], [place], [place], [place]) Address [address] [place] [address] Care Team Providers Care Library Director Name Role Phone Unavailable Primary Care Provider Unavailabl e Social History Tobacco Use Types Packs/Day Years Used Date Smoking Tobacco: Never Assessed Comments Unknown Sex and Gender Information Value Date Recorded Sex Assigned at Female 05/25/2022 8:35 PM CDT Legal Sex Female 8:35 PM CDT Gender Identity Female 05/25/2022 8:35 PM CDT Sexual Orientation Not on file Plan of Treatment Not on file
--- OUTSIDE RECORDS SUMMARY | 2025-08-22 15:42 | XMS_ITS | Encounter Summary ---
Author Organization [employer] ([place], [place], [place], [place]) Address [address] [place] [address] Care Team Providers Care Detective Narcotics And Vice Name Role Phone Unavailable Primary Care Provider Unavailabl e Encounter Details Date Type Department Care Team (Late st Contact Info) Description 10/15/2019 Transcribed Document [facility] [place] [facility] [place] [address] ProviderFlavia MD [address] [place] [address] Social History Tobacco Use Types [...] Conversion Note - Flavia ProviderMD - 10/15/2019 1:51 PM TONGUE TRIMMER Patient: LOREN NAVARRO Age: 24 Years Sex: Female : 1995 *Operation Ovarian Cystectomy Laparoscopic, Right Indication for Surgery 3cm right dermoid cyst, pelvic pain *Preoperative Diagnosis ovarian cysts PELVIC PAIN HISTORY OF UMBILICAL HERNIA REPAIR *Postoperative Diagnosis refer to MD notes same *Surgeon(s) Primary Surgeon BRITTON TAYLOR MD-OBG (Surgeon/Proceduralist, First) [id number] bhat [id number] *Procedure Narrative PROCEDURE IN DETAIL: The patient was taken to the operating room, where the general anesthesia was obtained without difficulty. She was prepared and draped in a normal sterile fashion in a dorsal lithotomy position. A heavy weighted speculum was placed in the vagina and the uterine manipulator was placed without difficulty. A Leon catheter was also placed at this time. Attention was then turned to the patient's abdomen where a 5 mm skin incision was placed at the left of umbilicus and the Veress needle was introduced where the opening pressure of CO2 was less than 5 mmHg. The water-filled syringe was then used to confirm the intra-abdominal placement of the Veress needle. The abdomen was then infiltrated with approximately 2 L of CO2 to create a pneumoperitoneum. A 5 mm laparoscope and Optiview were then placed with intra-abdominal placement, was then confirmed via the laparoscope. The patient's abdomen revealed the findings as noted above. Three accessory 5 mm skin incisions were placed and the trocars were inserted under direct visualization via the laparoscope. The laparoscopic scissors were used sharply disect the ovarian cyst along w blunt dissection wth the graspers. Just prior to removing the cyst from the ovary it ruptured and slight amount of yellow sebaceous material leaked from cyst. The abdomen was copiously irrigated w 1.5liters and the pedicle sites were noted to be hemostatic. The laparoscope was then used to survey the patient's abdomen, it revealed totally hemostatic pedicles. The instruments were then removed from the patient's abdomen. The skin incisions was closed with 4-0 Monocryl in a subcuticular fashion. The patient tolerated the procedure well, all counts were correct and she was taken to recovery room in stable condition and she was given antibiotic prophylaxis per hospital protocol. Drains/Packs Used none Anesthesia GET *Estimated Blood Loss MINIMAL Urine Output CLEAR AT END OF PROCEDURE *Findings RIGHT DERMOID NORMAL LEFT OVARY AND UTERUS *Specimen(s) RIGHT CYST WALL Complications none Date of Service Date/Time of Service SN - Proc - Start Time: 10/15/19 13:09:00 (10/15/19 13:16:46) documented in this encounter Plan of Treatment Not on file documented as of this encounter Visit Diagnoses Not on filedocumented in this encounter
--- OUTSIDE RECORDS SUMMARY | 2025-08-22 15:42 | XMS_ITS | Clinical Summary ---
Author Organization [employer] ([place], [place], [place], [place]) Address [address] [place] [address] Care Team Providers Care Transit Survey Worker Name Role Phone Unavailable Primary Care [...]
--- OUTSIDE RECORDS SUMMARY | 2025-08-22 15:43 | XMS_ITS | Encounter Summary ---
Author Organization [employer] ([place], [place], [place], [place]) Address [address] [place] [address] Care Team Providers Care Seed Cleaning Manager Name Role Phone Unavailable Primary Care Provider Unavailabl e Encounter Details Date Type Department Care Team (Late st Contact Info) Description 10/15/2019 Transcribed Document [facility] [place] [address] [place] [address] ProviderFlavia MD [address] [place] [address] Social History Tobacco Use Types [...] - Flavia ProviderMD - 10/15/2019 1:09 PM GAME AUTHOR E Main OR PACU Summary Primary Physician: BRITTNO TAYLOR MD-OBG Finalized Date/Time: 10/15/19 14:37:42 Pt. Name: LOREN LUIS/Sex: 1995 Female Med Rec #: [id number] Physician: BRITTON TAYLOR MD-OBG Financial #: [id number] Pt. Type: O Room/Bed: Admit/Disch: 10/15/19 10:40:00 - Institution: [facility] [place] Main OR PACU Case Times Entry 1 In PACU I 10/15/19 13:43:00 Ready for PACU 10/15/19 14:37:00 Discharge Discharge from PACU 10/15/19 14:37:00 I Last Modified By: Kathia Gee Rn Patient Care Bedside 10/15/19 14:37:31 [facility] Main OR PACU Case Times Audit 10/15/19 14:37:31 Appliance Service Supervisor: RICARDO Modifier: RICARDO <+> 1 Ready for PACU Discharge <+> 1 Discharge from PACU I Finalized By: Kathia Gee Rn Patient Care Bedside Document Signatures Signed By: Kathia Gee Rn Patient Care Bedside 10/15/19 14:37 Electronically signed by Izabela [facility] Conversion Adjunct Trainer Cerner at 03/16/2023 8:44 PM CDT documented in this encounter Plan of Treatment Not on file documented as of this encounter Visit Diagnoses Not on filedocumented in this encounter
--- OUTSIDE RECORDS SUMMARY | 2025-08-22 15:43 | XMS_ITS | Encounter Summary ---
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 Name: BRENDENIRA AQUILESKYM WoodO.B./Sex: 1995 Female Med Rec #: [id number] Physician: BRITTON TAYLOR MD-OBG Financial #: [id number] Pt. Type: O Room/Bed: Admit/Disch: 10/15/19 10:40:00 - Institution: [facility] [place] IntraOp Case Attendance Entry 1 Entry 2 Entry 3 Case Attendee BRITTON TAYLOR MD-OBG Janeth Shelton Holliday, Stewart R, shaping machine operatorDobby Loom Fixer Role Performed Surgeon/Proceduralist, Scrub, First Manager Entry, First First Time In 10/15/19 12:47:00 10/15/19 12:47:00 10/15/19 12:47:00 Time Out 10/15/19 13:42:00 10/15/19 13:42:00 10/15/19 13:42:00 Procedure Ovarian Cystectomy Ovarian Cystectomy Ovarian Cystectomy Laparoscopic(Right) Laparoscopic(Right) Laparoscopic(Right) Other Attendee Superficial Wound Closed By: Last Modified By: Nestor Segovia, Nestor Lara, RN Nestor Segovia, RN 10/15/19 13:44:45 10/15/19 13:44:45 10/15/19 13:44:45 Entry 4 Entry 5 Entry 6 Case Attendee ARASELI LAU PA-C NAPIER, CYNTHIA A HEAVY MOBILE EQUIPMENT OPERATOR OTHER, ATTENDEE Role Performed Physician assistant front desk manager HEAVY MOBILE EQUIPMENT OPERATOR/Nurse Mica Patcher Manager Entry, Second Time In 10/15/19 12:47:00 10/15/19 12:47:00 10/15/19 12:47:00 Time Out 10/15/19 13:42:00 10/15/19 13:42:00 10/15/19 13:42:00 Procedure Ovarian Cystectomy Ovarian Cystectomy Ovarian Cystectomy Laparoscopic(Right) Laparoscopic(Right) Laparoscopic(Right) Other Attendee Svetlana Morgan Superficial Wound Closed By: Last Modified By: Nestor Segovia, Nestor Lara, RN Nestor Segovia, RN 10/15/19 13:44:45 10/15/19 13:44:45 10/15/19 13:44:45 [facility] IntraOp Case Attendance Audit 10/15/19 13:44:45 Charm Filter Operator Helper: MARCELLO Modifier: MARCELLO 1 <+> Time Out 1 <*> Procedure Ovarian Cystectomy Laparoscopic(Right) 2 <+> Time Out 2 <*> Procedure Ovarian Cystectomy Laparoscopic(Right) 3 <+> Time Out 3 <*> Procedure Ovarian Cystectomy Laparoscopic(Right) 4 <+> Time Out 4 <*> Procedure Ovarian Cystectomy Laparoscopic(Right) 5 <+> Time Out 5 <*> Procedure Ovarian Cystectomy Laparoscopic(Right) 6 <+> Time Out 6 <*> Procedure Ovarian Cystectomy Laparoscopic(Right) 10/15/19 13:29:29 Charm Filter Operator Helper: GRACIER Modifier: [email or web address] 1 <*> Procedure Ovarian Cystectomy Laparoscopic(Right) 2 <*> Procedure Ovarian Cystectomy Laparoscopic(Right) 3 <*> Procedure Ovarian Cystectomy Laparoscopic(Right) 4 <*> Procedure Ovarian Cystectomy Laparoscopic(Right) 5 <*> Procedure Ovarian Cystectomy Laparoscopic(Right) 6 <+> Time In 6 <*> Procedure Ovarian Cystectomy Laparoscopic(Right) 10/15/19 13:29:00 Charm Filter Operator Helper: GRACIER Modifier: HOLLIDSR 1 <*> Procedure Ovarian Cystectomy Laparoscopic(Right) 2 <+> Time In 2 <*> Procedure Ovarian Cystectomy Laparoscopic(Right) 3 <+> Time In 3 <*> Procedure Ovarian Cystectomy Laparoscopic(Right) 4 <+> Time In 4 <*> Procedure Ovarian Cystectomy Laparoscopic(Right) 5 <+> Time In 5 <*> Procedure Ovarian Cystectomy Laparoscopic(Right) <+> 6 Case Attendee <+> 6 Role Performed <+> 6 Procedure <+> 6 Other Attendee [facility] IntraOp Case Times Entry 1 Patient In Room Time 10/15/19 12:47:00 Out Room Time 10/15/19 13:42:00 Anesthesia Start Time 10/15/19 12:47:00 Stop Time 10/15/19 13:42:00 Anesthesia Ready 10/15/19 12:47:00 Surgery / Procedure Times Start Time 10/15/19 13:09:00 Stop Time 10/15/19 13:35:00 Last Modified By: Nestor Segovia RN 10/15/19 13:44:44 [facility] IntraOp Case Times Audit 10/15/19 13:44:44 Charm Filter Operator Helper: MARCELLO Modifier: ANUPIDSR <+> 1 Out Room Time <+> 1 Stop Time 10/15/19 13:36:04 Charm Filter Operator Helper: MARCELLO Modifier: ANUPIDSR <+> 1 Stop Time 10/15/19 13:09:43 Charm Filter Operator Helper: GRACIER Modifier: HOLLIDSR <+> 1 Start Time [facility] IntraOp Cautery Entry 1 ESU Identification Cautery Type BiPolar ESU ID Number [id number] ID Type Hospital Number Cautery Settings Cut Setting 40 Coag Setting 40 ESU Grounding Pad Ground Pad Type Adult Grounding Pad Site Intact Skin Condition Before Cautery Grounding Pad Site Intact Skin Condition After Cautery Last Modified By: Nestor Segovia RN 10/15/19 13:03:05 [facility] IntraOp Communication Entry 1 Communication To Family/Significant other Comment procedure update Communication By Nestor Segovia, RN Last Modified By: Nestor Segovia RN 10/15/19 13:03:18 [facility] IntraOp Counts Verification Entry 1 Procedure Ovarian Cystectomy Laparoscopic(Right) Count Info Count Type Sponge, Sharps, Instrument, Miscellaneous Counts Verification Baseline/pre-procedure Sequence Counts Performed By Count Performed By Janeth Shelton, (Scrub) Dobby Loom Fixer Count Performed By Janeth Shelton (RN) Dobby Loom Fixer Last Modified By: Nestor Segovia RN 10/15/19 12:53:03 [facility] IntraOp Counts Final Entry 1 Procedure Ovarian Cystectomy Laparoscopic(Right) Final Count Info Count Type Sponge, Sharps, Miscellaneous Counts Verification Skin Closure/end of Sequence procedure Count Results Correct, surgeon notified Counts Performed By Count Performed By Janeth Shelton, (Scrub) Dobby Loom Fixer Count Performed By Nestor Segovia, RN (RN) Last Modified By: Nestor Segovia RN 10/15/19 13:28:41 [facility] IntraOp Counts Final Audit 10/15/19 13:28:41 Charm Filter Operator Helper: MARCELLO Modifier: MARCELLO 1 <*> Procedure Ovarian Cystectomy Laparoscopic(Right) 1 <+> Counts Verification Sequence [facility] IntraOp Cultures and Spec Summary Entry 1 Cultrures and Specimens Specimen Ordered: Yes Test(s) Routine/Path-Lab Requested/Final Disposition Last Modified By: Nestor Segovia RN 10/15/19 13:08:30 [facility] IntraOp Departure from OR Entry 1 Integumentary Assessment Transfer/Handoff Transfer to PACU Phase I Handoff Method Bedside/Face to face Post-op Transport Stretcher/Gurney Via Patient Transport Nestor Segovia, Accompanied by RN, MIKE CARSON CRNA Last Modified By: Nestor Segovia RN 10/15/19 13:02:40 [facility] IntraOp Dressing and Packing Entry 1 Type Dressing Wound Dressing Item Steristrip, 2x2's, Skin adhesive Last Modified By: Nestor Segovia RN 10/15/19 13:26:38 [facility] IntraOp Fire Risk Assessment Entry 1 Fire Info Surgical Site or 0- No Incision Above the Xyphoid Open O2 Source 0- No (Mask or Cannula) Available Ignition 0- No (ESU, Laser, Light Source) Fire Risk 1 Assessment Score Fire Score Fire Risk Yes Assessment Complete Fire Risk Nestor Segovia technician automated equipment Verified By Fire Risk 10/15/19 12:52:00 Assessment Verified Date/Time Fire Risk Standard Fire Yes Safety Precautions Followed Last Modified By: Nestor Segovia RN 10/15/19 12:52:39 [facility] IntraOp General Case Loop Sewer 1 Case Information OR OR 07 [facility] Case Level 1 Room Verified Yes Wound Class II - Clean-Contaminated Specialty SN Gynecology Anesthesia Type General ASA Class 2 Diagnosis Preop Diagnosis ovarian cysts Postop Diagnosis refer to MD notes Last Modified By: Nestor Segovia RN 10/15/19 13:03:21 [facility] IntraOp General Case Data Audit 10/15/19 13:03:21 Charm Filter Operator Helper: MARCELLO Modifier: MARCELLO <+> 1 ASA Class [facility] IntraOp Intraoperative Assessment Entry 1 Valid History / Yes Physical in Chart Preoperative Yes Checklist Reviewed/Evaluated Patient is Latex No Sensitive Present Upon IVs Arrival to OR Last Modified By: Nestor Segovia RN 10/15/19 12:52:46 [facility] IntraOp Intraoperative Equipment Entry 1 Type Equipment Equipment Intraop Monitoring Electrocardiogram Three lead placement (ECG) Electrode Placement Blood Pressure Non-Invasive BP Device Source Blood Pressure Arm, right upper Location Pulse Oximeter Hand, left Probe Site Antiembolic Devices Antiembolic Devices Sequential compression device, knee high Antiembolic Device Bilateral Location Scopes Photo/Video Documentation Last Modified By: Nestor Segovia RN 10/15/19 12:53:16 [facility] IntraOp Medication Admin Entry 1 Entry 2 Medication/Irrigant Marcaine 0.5% 10ml vial epinephrine 1mg/ml amp - [id number] Combo Med List Time Administered Route of local Administration Dose Dose 30 Unit of Measure ml Volume Administered By BRITTON TAYLOR MD-OBG BRITTON TAYLOR MD-OBG Procedure Irrigation Irrigant Volume In Irrigant Volume Out Last Modified By: Nestor Segovia RN Nestor Segovia RN 10/15/19 13:11:00 10/15/19 13:11:00 [facility] IntraOp Patient Positioning Entry 1 Procedure Ovarian Cystectomy Laparoscopic(Right) Left Arm Position Tucked and padded at side Right Arm Position Tucked and padded at side Left Leg Position Secured in Leg Zuniga Right Leg Position Secured in Leg Zuniga Feet Uncrossed Yes Pressure Points Yes Checked Positioning Devices Stirrups/Leg Zuniga, Boot Positioned By Nestor Segovia, RN, ARASELI LAU PA-C, MIKE CARSON CRNA Position Verified Positioning Yes Verified by Anesthesia Positioning Yes Verified by Surgeon Last Modified By: Nestor Segovia, RN 10/15/19 13:11:15 [facility] IntraOp Patient Positioning Audit 10/15/19 13:11:15 Charm Filter Operator Helper: MARCELLO Modifier: MARCELLO Cortés <*> Procedure Ovarian Cystectomy Laparoscopic(Right) 1 <+> Positioned By [facility] IntraOp Sign In Entry 1 Patient, Site, Yes Procedure Identified Surgical Consent Yes Confirmed Relevant Surgical Yes Documents Available Surgical Site N/A Marked by person performing procedure Anesthesia Machine Yes Check Completed Medication Checks Yes Completed Airway Hypothermia Risk Yes Warming Measures Yes Taken Last Modified By: Nestor Segovia RN 10/15/19 12:52:30 [facility] Intra Op Sign Out Entry 1 RN Confirmation Surgical Yes Procedure(s) Identified Instrument, Sponge Yes and Sharps Counts Correct/Documented Equipment Problems N/A Documented Specimen Labeled Yes Correctly Urinary Catheter N/A Documented in IView Quinteros Patient Yes Recovery Concerns Reviewed with Anesthesia Provider, Surgeon and RN Quinteros Patient Yes Management Concerns Reviewed with Anesthesia Provider, Surgeon and RN Safety Checklist Yes Elements Complete? RN Sign Out Nestor Segovia, RN Signature RN Sign Out 10/15/19 13:44:00 Signature Date/Time Plan of Care Outcome - Fire Risk OUTCOME STATEMENT: Goal met Patient is free from injury related to surgical fire Plan of Care Outcome - Pt Positioning OUTCOME STATEMENT: Goal met Absence of signs and symptoms of positioning injury. Plan of Care Outcome - Skin Prep OUTCOME STATEMENT: Goal met Intraoperative care is consistent with measures to prevent infection Plan of Care Outcome - Xray/Images OUTCOME STATEMENT: Goal met Absence of observable signs or symptoms of radiation injury Plan of Care Outcome - Counts OUTCOME STATEMENT: Goal met Absence of signs and symptoms of injury related to extraneous objects Last Modified By: Nestor Segovia RN 10/15/19 13:44:48 [facility] Intra Op Sign Out Audit 10/15/19 13:44:48 Charm Filter Operator Helper: MARCELLO Modifier: [email or web address] <+> 1 RN Sign Out Signature Date/Time [facility] IntraOp Skin Prep Entry 1 Procedure Ovarian Cystectomy Laparoscopic(Right) Prescribed Yes Pre-Surgical Prep Completed Prep Area ABDOMEN, VAGINA Intraop Prep Prep Agents Chloraprep, Betadine solution Hair Removal Last Modified By: Nestor Segovia RN 10/15/19 12:52:32 [facility] IntraOp Surgical Procedures Entry 1 Procedure Ovarian Cystectomy Laparoscopic Modifiers Right Additional LAPAROSCOPIC OVARIAN Procedure CYSTECTOMY Description Primary Procedure Yes Primary Surgeon BRITTON TAYLOR MD-OBG Start 10/15/19 13:09:00 Stop 10/15/19 13:35:00 Anesthesia Type General Specialty SN Gynecology Wound Class II - Clean-Contaminated Last Modified By: Nestor Segovia RN 10/15/19 13:36:05 [facility] IntraOp Surgical Procedures Audit 10/15/19 13:36:05 Charm Filter Operator Helper: MARCELLO Modifier: [email or web address] <+> 1 Stop 10/15/19 13:28:23 Charm Filter Operator Helper: MARCELLO Modifier: HOLLIDSR 1 <*> Procedure Ovarian Cystectomy Laparoscopic 1 <*> Additional Procedure Description LAPAROSCOPIC OVARIAN CYSTECTOMY/PARTIAL OOPHERECTOMY 10/15/19 13:16:46 Charm Filter Operator Helper: MARCELLO Modifier: HOLLIDSR 1 <*> Procedure Ovarian Cystectomy Laparoscopic 1 <+> Modifiers 1 <+> Start [facility] IntraOp Time Out Entry 1 Procedure to be Ovarian Cystectomy Performed Laparoscopic(Right) Time Out Time Out Pause Time 10/15/19 13:08:00 All activity Yes suspended (unless life threatening emergency) Team Verbally Correct patient Confirms Information identity, Correct side and site are marked, Consent form is present and accurate, Agreement on the procedure to be done, Correct patient position, Relevant images/results properly labeled/appropriately displayed, Confirm antibiotics have been administered, Confirm the skin prep has dried, Confirm prosthesis/implant/devic e is present, Performed in location of procedure after prepped/draped Antibiotic Yes Prophylaxis Administered Or In Progress Within the Last 60 Minutes Beta Letitia N/A Administered Venous Yes Thromboembolism Prophylaxis Required Anticipated Critical Events Surgeon None expected Anesthesia Provider None expected Nursing Assures Sterility of instruments Essential Imaging Yes Labeled and Displayed Last Modified By: Nestor Segovia RN 10/15/19 13:10:17 Case Comments <None> Finalized By: Nestor Segovia, RN Document Signatures Signed By: Nestor Segovia RN 10/15/19 13:44 Electronically signed by Izabel[facility] Conversion Intelligence Officer Cerner at 03/16/2023 8:50 PM CDT documented in this encounter Plan of Treatment Not on file documented as of this encounter Visit Diagnoses Not on filedocumented in this encounter
--- OUTSIDE RECORDS SUMMARY | 2025-08-22 15:44 | XMS_ITS | Encounter Summary ---
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 Name: LOREN LUIS/Sex: 1995 Female Med Rec #: [id number] Physician: BRITTON TAYLOR MD-OBG Financial #: [id number] Pt. Type: O Room/Bed: Admit/Disch: 10/15/19 10:40:00 - Institution: [facility] [place] Main OR PostOp Case Times Entry 1 In PACU II 10/15/19 14:40:00 Ready for PACU II 10/15/19 15:25:00 Discharge Discharge from PACU 10/15/19 15:25:00 II Last Modified By: Ximena Rees RN 10/15/19 15:26:59 [facility] Main OR PostOp Case Times Audit 10/15/19 15:26:59 Merchandising Professor: ROJELIO Modifier: OBDULIOCHUCK <+> 1 Ready for PACU II Discharge <+> 1 Discharge from PACU II Finalized By: Ximena Rees, RN Document Signatures Signed By: Ximena Rees RN 10/15/19 15:27 Electronically signed by Alexandro Gurrola Conversion Admissions Gate Attendant Cerner at 03/16/2023 8:47 PM CDT documented in this encounter Plan of Treatment Not on file documented as of this encounter Visit Diagnoses Not on filedocumented in this encounter
--- NOTE | 2025-08-22 15:53 | PC.NURSE ---
PT TRANSPORTED TO ULTRASOUND
[2025-08-22 15:58] LABS: Microscopic, Urine URINE MICROSCOPIC (MICROSCOPIC)
[2025-08-22 16:06] LABS: Hematocrit 39.6 % (37.0-47.0); Hemoglobin 13.2 g/dL (12.2-16.2); Immature Granulocytes % 0.1 %; Mean Corpuscular HGB Conc 33.3 g/dL (31.8-35.4); Mean Corpuscular Hemoglobin 29.2 pg (27.0-31.2); Mean Corpuscular Volume 87.6 fl (81-99); Nucleated Red Blood Cells % 0 %; Platelet Count 307 K/mm3 (142-424); Red Blood Count 4.52 M/mm3 (4.20-5.40); Red Cell Distribution Width-SD 40.4 fL; White Blood Count 7.3 K/mm3 (4.8-10.8)
[2025-08-22 16:13] LABS: Albumin Level 4.1 g/dl (3.5-5.0); Chloride 102 mmol/L (98-107); Potassium 3.8 mmoL/L (3.5-5.1); Sodium 136 mmol/L (136-145)
[2025-08-22 16:13] LABS: Bilirubin,Urine Negative (Negative); Color,Urine YELLOW (Yellow); Glucose,Urine (UA) Negative (Negative); Ketones,Urine Negative (Negative); Leukocyte Esterase,Urine Negative (Negative); PH,Urine 6.5 (5.0-8.5); Protein,Urine Negative (Negative); Specific Gravity, Urine 1.010 (1.005-1.030); Urobilinogen,Urine 0.2 EU/dl (0.2)
[2025-08-22 16:16] LABS: Alanine Aminotransferase 27 U/L (12-78); Albumin/Globulin Ratio 1.2 (1.1-1.8); Alkaline Phosphatase 80 U/L (38-126); Anion Gap 11.8 mEq/L (5-15); Aspartate Amino Transferase 24 U/L (14-36); Bilirubin,Total 0.4 mg/dl (0.2-1.3); Blood Urea Nitrogen 8 mg/dl (7-17); Carbon Dioxide 26 mmol/L (22.0-30.0); Creatinine Clearance Estimated 163 mL/min (50-200); Creatinine,Serum 0.80 mg/dl (0.52-1.04); Estimated Glomerular Filt Rate 84 ml/min (>60); GFR (African American) 102 ML/MIN (>60); Globulin 3.3 g/dL (1.3-3.2); Total Protein,Serum 7.4 g/dl (6.3-8.2)
[2025-08-22 16:17] LABS: Calcium 9.5 mg/dl (8.4-10.2); Glucose 86 mg/dl (74-100)
[2025-08-22 16:50] LABS: Bacteria,Urine Trace /lpf; RBC,Urine Occasional #/hpf (0-3)
[2025-08-22 17:36] VITALS: BP 123/80; PULSE 73; RESP 18; TEMP 36.7; O2SAT 100
== END 2025-08-22 17:37 | disposition home or self-care (01) ==
PROVIDERS: Emergency Provider Student in an Organized Health Care Education/Training Program; PCP Internal Medicine Adolescent Medicine
DX: O20.8 Other hemorrhage in early pregnancy (principal); O23.41 Unspecified infection of urinary tract in pregnancy, first trimester; R82.71 Bacteriuria; Z3A.01 Less than 8 weeks gestation of pregnancy
CPT/HCPCS: 76817; 80053; 81001; 84702; 85025; 86900; 86901; 99284